=== PATIENT | male | born 1975 | race Caucasian/White ===

== ENCOUNTER → 2020-07-06 | Outpatient (CLI) | payer SELFPAY ==
[2020-07-06 16:33] LABS: HEMOGLOBIN 14.8 gm/dl (14.0-17.5); RED BLOOD COUNT 4.83 M/UL (4.20-5.50); WHITE BLOOD COUNT 11.7 K/UL (4.5-11.0)
[2020-07-06 16:57] LABS: BUN/CREATININE RATIO 13 (0-10)
[2020-07-07 08:12] LABS: VITAMIN D, 25-HYDROXY 15.3 ng/mL (30.0-100.0)
[2020-07-07 11:12] LABS: THYROXINE (T4) 7.4 ug/dL (4.5-12.0)
== END ==
LOC: LAB 15:50
PROVIDERS: Nurse Practitioner
DX: I10 Essential (primary) hypertension (principal); E78.5 Hyperlipidemia, unspecified
CPT/HCPCS: 80053; 80061; 84436; 84443; 84480; 85025